=== PATIENT | male | born 1995 | race Two or more races ===

== ENCOUNTER 2017-05-10 02:29 | Day surgery (SDC) | payer OTHER ==
[~2017-05-10] VITALS: Ht 167.6 cm; Wt 66.7 kg
--- NOTE | 2017-05-10 02:58 | Emergency Room Report ---
History of Present Illness Time Seen by MD Handy Presenting Problem in Triage Pt arrived:Walked Presenting Problem:INJURY TO LEFT HAND, BETWEEN LEFT INDEX FINGER AND THUMB. PT SPEAKS VERY LITTLE TAJIK. 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 N Clinical Suspician of Infection? N Mental Status: 1 - Regular (Normal Baseline) Sepsis Risk:Low Sepsis Risk Have you (or family members/close friends) recently traveled outside the [place]? N If Yes, where/when: Have you had exposure to infectious disease within the past month? N TB? Other? Specify: Source patient, RN notes reviewed, family, old records Exam Limitations language barrier Comment pt fell with lt thumb injury tonight Cardiac Chest Pain Chest pain indicative of cardiac No Timing/Duration this evening Severity moderate ALLERGIES Coded Allergies: No Known Allergies (05/10/17) Home Medications Reported Medications No Known Home Medications History Medical History General CAD? No Angina: No [place]: No Hypertension? No Hyperlipidemia? No CHF? No DVT? No PE? No COPD? No Asthma? No Anemia? No GERD? No Gastric ulcers? No GI Bleed? No Hernia? No Thyroid Problems? No Hypothyroidism? No CVA? No Seizures? No Diabetes? No Renal Insuffiency? No End Stage Renal Disease? No UTI? No Stones? No BPH? No GB Disease: No Nephritic Syndrome? No Asplenia? No Hepatitis? No Sickle Cell Disease? No Arthritis? No Migraines? No Cataracts? No Glaucoma? No MRSA? No HIV? No TB? No Anxiety? No Depression? No Immunization Hx DT/Tetanus Unknown Surgical Hx Previous Surgery?N Social History Smoking Hx Smoker: Never Smoker Tobacco: No Type Cigarettes Drugs none Review of Systems All Other Systems Reviewed and Negative Constitutional denies fever Eyes denies drainage ENT denies: ear discharge, epistaxis, throat pain. Respiratory denies cough, denies shortness of breath, denies wheezing Cardiovascular denies chest pain, denies syncope Gastrointestinal denies abdominal pain, denies diarrhea, denies vomiting Genitourinary denies: dysuria, frequency, hesitancy, hematuria. Musculoskeletal see HPI, denies back pain, joint pain, joint swelling, denies neck pain Skin denies rash Psychiatric/Neurological denies headache, denies seizure Physical Exam Vital Signs Vital Signs Date Time Temp Pulse Resp B/P Pulse O2 O2 Flow FiO2 Ox Delivery Rate 05/10 0244 98.0 70 20 135/93 98 - WBC >12,000 or <4,000 or 10% bands? 2 or more SIRS Criteria Met? B/P:135/93 MAP:107 Creatinine >2.0? UA output<0.5ml/kg/hr for 2 hrs? Platelet count >100,000? Lactate >2.0mmol/1? INR >1.2 or PTT > than 60 sec? Evidence of Organ Dysfunction? Provider documented clinical suspician of infection? N Sepsis Criteria Count: 1 Sepsis Risk: Low Sepsis Risk General Appearance no apparent distress Eye Exam - bilateral eye PERRL, bilateral eye EOMI Ear, Nose, Throat normal ENT inspection Neck supple Respiratory Status No: respiratory distress. 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 No Results/Orders Current Medication Orders Sig/Vasyl Start time Last Medication Dose Route Stop Time Status Admin Lidocaine HCl 0 .STK-MED ONE 05/10 0443 DC .ROUTE Lidocaine HCl 0 .STK-MED ONE 05/10 0320 DC .ROUTE Orders Procedure Date/time Status HAND-LT-3 VIEWS 05/106 Active XRAY/CT/US XRAY/CT/US XRAY hand XR interpretation by reviewed by me Xray Results abnormal (prox dislocation) Procedures Orthopedic/Inj/Splint Ortho Proc/Injections/Splints Risks/benefits discussed with pt/guardian? Yes IV conscious sedation No Medications Lidocaine mg Nerve block (site) local Medications Lidocaine mg Reduction of dislocation Location thumb Reductioni Method Traction/Counter traction. Comment unable to reduce Pre-Proc Neuro Vasc Exam normal Post-Proc Neuro Vasc Exam unchanged from pre-exam Departure Departure Time of Disposition 0508 Disposition Still a Patient Clinical Impression Primary Impression: Dislocation of thumb Qualifiers: Encounter type: initial encounter Laterality: left Qualified Code: S63.105A - Unspecified dislocation of left thumb, initial encounter Condition STABLE Referrals NAOMI BARRETT, JULISSA HORAN Prescriptions Current Visit Scripts No Known Home Medications ED Critical Care Critical Care No at 0502
--- NOTE | 2017-05-10 02:58 | Emergency Room Report ---
History of Present Illness Time Seen by MD Handy Presenting Problem in Triage Pt arrived:Walked Presenting Problem:INJURY TO LEFT HAND, BETWEEN LEFT INDEX FINGER AND THUMB. PT SPEAKS VERY LITTLE UKRAINIAN. 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 N Clinical Suspician of Infection? N Mental Status: 1 - Regular (Normal Baseline) Sepsis Risk:Low Sepsis Risk Have you (or family members/close friends) recently traveled outside the [place]? N If Yes, where/when: Have you had exposure to infectious disease within the past month? N TB? Other? Specify: Source patient, RN notes reviewed, family, old records Exam Limitations language barrier Comment pt fell with lt thumb injury tonight Cardiac Chest Pain Chest pain indicative of cardiac No Timing/Duration this evening Severity moderate ALLERGIES Coded Allergies: No Known Allergies (05/10/17) Home Medications Reported Medications No Known Home Medications History Medical History General CAD? No Angina: No [place]: No Hypertension? No Hyperlipidemia? No CHF? No DVT? No PE? No COPD? No Asthma? No Anemia? No GERD? No Gastric ulcers? No GI Bleed? No Hernia? No Thyroid Problems? No Hypothyroidism? No CVA? No Seizures? No Diabetes? No Renal Insuffiency? No End Stage Renal Disease? No UTI? No Stones? No BPH? No GB Disease: No Nephritic Syndrome? No Asplenia? No Hepatitis? No Sickle Cell Disease? No Arthritis? No Migraines? No Cataracts? No Glaucoma? No MRSA? No HIV? No TB? No Anxiety? No Depression? No Immunization Hx DT/Tetanus Unknown Surgical Hx Previous Surgery?N Social History Smoking Hx Smoker: Never Smoker Tobacco: No Type Cigarettes Drugs none Review of Systems All Other Systems Reviewed and Negative Constitutional denies fever Eyes denies drainage ENT denies: ear discharge, epistaxis, throat pain. Respiratory denies cough, denies shortness of breath, denies wheezing Cardiovascular denies chest pain, denies syncope Gastrointestinal denies abdominal pain, denies diarrhea, denies vomiting Genitourinary denies: dysuria, frequency, hesitancy, hematuria. Musculoskeletal see HPI, denies back pain, joint pain, joint swelling, denies neck pain Skin denies rash Psychiatric/Neurological denies headache, denies seizure Physical Exam Vital Signs Vital Signs Date Time Temp Pulse Resp B/P Pulse O2 O2 Flow FiO2 Ox Delivery Rate 05/10 0244 98.0 70 20 135/93 98 - WBC >12,000 or <4,000 or 10% bands? 2 or more SIRS Criteria Met? B/P:135/93 MAP:107 Creatinine >2.0? UA output<0.5ml/kg/hr for 2 hrs? Platelet count >100,000? Lactate >2.0mmol/1? INR >1.2 or PTT > than 60 sec? Evidence of Organ Dysfunction? Provider documented clinical suspician of infection? N Sepsis Criteria Count: 1 Sepsis Risk: Low Sepsis Risk General Appearance no apparent distress Eye Exam - bilateral eye PERRL, bilateral eye EOMI Ear, Nose, Throat normal ENT inspection Neck supple Respiratory Status No: respiratory distress. 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 No Results/Orders Current Medication Orders Sig/Vasyl Start time Last Medication Dose Route Stop Time Status Admin Lidocaine HCl 0 .STK-MED ONE 05/10 0443 DC .ROUTE Lidocaine HCl 0 .STK-MED ONE 05/10 0320 DC .ROUTE Orders Procedure Date/time Status HAND-LT-3 VIEWS 05/106 Active XRAY/CT/US XRAY/CT/US XRAY hand XR interpretation by reviewed by me Xray Results abnormal (prox dislocation) Procedures Orthopedic/Inj/Splint Ortho Proc/Injections/Splints Risks/benefits discussed with pt/guardian? Yes IV conscious sedation No Medications Lidocaine mg Nerve block (site) local Medications Lidocaine mg Reduction of dislocation Location thumb Reductioni Method Traction/Counter traction. Comment unable to reduce Pre-Proc Neuro Vasc Exam normal Post-Proc Neuro Vasc Exam unchanged from pre-exam Departure Departure Time of Disposition 0508 Disposition Still a Patient Clinical Impression Primary Impression: Dislocation of thumb Qualifiers: Encounter type: initial encounter Laterality: left Qualified Code: S63.105A - Unspecified dislocation of left thumb, initial encounter Condition STABLE Referrals NAOMI BARRETT, JULISSA HORAN Prescriptions Current Visit Scripts No Known Home Medications ED Critical Care Critical Care No at 050
--- OUTSIDE RECORDS SUMMARY | 2017-05-10 03:00 | External Medical Summary Rpt | CCD ---
Author Author [employer] Organization [employer] Address Unknown Phone Unavailable Purpose Continuity of Care Document - through 2016
--- OUTSIDE RECORDS SUMMARY | 2017-05-10 03:00 | External Medical Summary Rpt | CCD ---
Author Author , AVI CÁRDENAS Address Unknown Phone [email or web address] Purpose Continuity of Care Document - through 2016
--- OUTSIDE RECORDS SUMMARY | 2017-05-10 03:00 | External Medical Summary Rpt | CCD ---
Author Author , AVI CÁRDENAS Address Unknown Phone [email or web address] Purpose Continuity of Care Document - through 2016
--- OUTSIDE RECORDS SUMMARY | 2017-05-10 03:02 | External Medical Summary Rpt | CCD ---
Demographics Preferred Language Lao Marital Status Unknown Buddhism Affiliation Unknown Race Unknown Ethnic Group Unknown Author Author , AVI Organization [employer] Address Unknown Phone Immunization Unable to retrieve immunization data due to connection failure with Immunization Registry. Please try again later.
--- OUTSIDE RECORDS SUMMARY | 2017-05-10 03:02 | External Medical Summary Rpt | CCD ---
Demographics Preferred Language [place] Marital Status Unknown Zoroastrianism Affiliation Unknown Race Unknown Ethnic Group Unknown Author Author , [employer] Organization [employer] Address Unknown Phone Immunization Unable to retrieve immunization data due to connection failure with Immunization Registry. Please try again later.
--- NOTE | 2017-05-10 05:48 | CONSULT NOTE ---
Consultation findings: Referring physician: Dr. Powers Date of examination: 05/10/17 Time of examination: 0430 Exam findings: Emergency room consultation History of Present Illness Chief complaint: Injury left thumb Patient is a pleasant 21-year-old [id number] gentleman seen in the ER along with his father and brother. Patient and his family speak Italian and do not speak any meaningful Salvadorean. We used [employer] and video remote interpretation (VRI) service to communicate with the patient. He presented to the ER during the early hours with history of injury to his left thumb when he fell down. Following the injury he developed pain and swelling at the base of the thumb. X-rays in the ER showed carpometacarpal joint dislocation of his left thumb. An unsuccessful closed reduction was attempted by Dr. Powers under local anesthesia. Patient and his family were in the [employer] [facility]. He is right-hand dominant. No history of any medical problems and no history of any previous surgery. ALLERGIES Coded Allergies: No Known Allergies (05/10/17) Home Medications Reported Medications No Known Home Medications History Medical History General CAD? No Angina: No [place]: No Hypertension? No Hyperlipidemia? No CHF? No DVT? No PE? No COPD? No Asthma? No Anemia? No GERD? No Gastric ulcers? No GI Bleed? No Hernia? No Thyroid Problems? No Hypothyroidism? No CVA? No Seizures? No Diabetes? No Renal Insuffiency? No End Stage Renal Disease? No UTI? No Stones? No BPH? No GB Disease: No Nephritic Syndrome? No Asplenia? No Hepatitis? No Sickle Cell Disease? No Arthritis? No Migraines? No Cataracts? No Glaucoma? No MRSA? No HIV? No TB? No Anxiety? No Depression? No Immunization Hx DT/Tetanus Unknown Surgical Hx Previous Surgery?N Social History Smoking Hx Smoker: Never Smoker Tobacco: No Type Cigarettes Drugs none Review of Systems All Other Systems Reviewed and Negative Constitutional: denies fever Eyes: denies drainage ENT: denies: ear discharge, epistaxis, throat pain. Respiratory: denies cough, denies shortness of breath, denies wheezing Cardiovascular: denies chest pain, denies syncope Gastrointestinal: denies abdominal pain, denies diarrhea, denies vomiting Genitourinary: denies: dysuria, frequency, hesitancy, hematuria. Musculoskeletal: see HPI, denies back pain, joint pain, joint swelling, denies neck pain Skin: denies rash Psychiatric/Neurological: denies headache, denies seizure Physical Exam 1ST Vital Signs Result Date Time Pulse Ox 98 05/10 244 B/P 135/93 05/10 244 Temp 98.0 05/10 244 Pulse 70 05/10 244 Resp 20 05/10 244 Exam: General Appearance: normal appearance, well built. No acute distress ENT: mucous membranes moist Neck: normal inspection, non-tender, supple, full range of motion, trachea central Respiratory: chest symmetrical, non tender chest. No respiratory distress. Normal breath sounds bilaterally, lungs clear to auscultation. Cardiovascular: regular rate/rhythm, no peripheral edema, no gallop, no JVD, no murmur, no rub, normal peripheral pulses Gastrointestinal: Abdomen is soft and nontender, normal bowel sounds over all 4 quadrants, no organomegaly, no CVA tenderness. Neurologic: alert and oriented x 3; cranial nerves II-12: intact Mental status: Mood and affect are appropriate for situation Skin: intact, normal color, warm/dry On examination of his left hand, there is obvious deformity of the thumb with hyperextension at the MCP joint flexion of the DIP joint and shortening. There is diffuse swelling around the base of the thumb. He has limited and painful movements of his thumb. He still has some numbness from the local anesthetic injection. Distal circulation is intact with brisk capillary refill. No other injuries noted. Imaging: X-rays of his left hand multiple views showing a dorsal dislocation of the first metacarpophalangeal joint. There is no evidence of any fracture. Impression: Complex dislocation metacarpophalangeal joint, left thumb Recommendations: Utilizing the [employer] remote interpretation services, I reviewed the clinical and x-ray findings with the patient and his father. I discussed the diagnosis, natural history and management options including both nonsurgical and surgical. As the dislocation is not reducible by closed method, I have recommended an open reduction and stabilization as appropriate at the time of surgery. He wished to proceed. We discussed the details of the procedure, risks, benefits and alternatives. The complications discussed include but are not limited to infection, bleeding, injury to nerves and blood vessels, tendons and ligaments, wound dehiscence (wound coming apart), blood clots (DVT/PE), tendon injury/rupture, fracture, injury to the articular surface, stiffness, complex regional pain syndrome, hardware failure, pin tract infection, migration , wire breakage, bowstringing of tendons, weakness of pest control worker strength, incomplete functional recovery, persistent pain, decreased use of the hand, loss of use of the arm, loss of the digit or hand, likely need for further surgery, complications of anesthesia including heart attack, stroke and even . I also discussed about the possible need for further surgery for removal of the hardware if any utilized. I've indicated to the patient where the proposed incision would be made and also discussed the possibility of extending the incision if needed to accomplish an effective release. We have utilized paper copies of his x-rays to explain. I have told him that the thumb would be immobilized for up to 4 weeks and he may need hand therapy afterwards. I have also specifically told them that I am a general orthopedic surgeon and not a hand specialist. I have told him that I am capable of performing the surgery here but if they wish we could refer him to a hand specialist in [place]. They preferred to have it managed here. They asked appropriate questions and all have been answered by me. I believe the patient is fully informed as to the goal of surgery, the potential risks and benefits. All their questions were answered by me and they verbalized a good understanding. We will plan to perform the surgery this morning under general anesthesia.
[2017-05-10 06:04] LABS: HEMOGLOBIN 14.7 g/dL (14.1-18.0)
[2017-05-10 06:45] LABS: NEUTROPHILS 86 % (42-76)
--- NOTE | 2017-05-10 10:23 | Anesthesia Record ---
Anesthesia Record Part I Total IV fluids: 1100 EBL (ml): 0 Urine Output: 0 B/P: 140/79 % SaO2: 98 Pulse: 57 Resps: 16 Temp: 97.8 Patient is: Drowsy, Stable Stable to PACU at: 1100 at 1023
--- NOTE | 2017-05-10 10:24 | Anesthesia Record ---
Anesthesia Record Part II Discharge time: 1045 Destination: Same day surgery PACU nurse assessment review? Yes Patient is: Stable Anesthesia complications? No at 1027
--- NOTE | 2017-05-10 10:25 | Anesthesia Record ---
Anesthesia Record Part I Total IV fluids: 1100 EBL (ml): 0 Urine Output: 0 B/P: 140/79 % SaO2: 98 Pulse: 57 Resps: 16 Temp: 97.8 Patient is: Drowsy, Stable Stable to PACU at: 1015 at 1024
--- NOTE | 2017-05-10 10:52 | Operative Note ---
Procedure/Operative Record Date of Procedure: 05/10/17 Referring physician: Dr. Powers Pre-op diagnosis: Complex dorsal dislocation metacarpophalangeal joint, left thumb Post-op diagnosis: Complex dorsal dislocation metacarpophalangeal joint, left thumb Procedure performed: Open reduction MCP joint dislocation, left thumb Surgeon: Jimmy García MD Insurance Customer Service Specialist(s): Jenna Gibbons Anesthesia: General Indications: Patient is a 21-year-old [id number] male who sustained an injury to his left thumb when he fell down. He presented to the ER where x-rays showed dislocation of first metacarpophalangeal joint. Attempts in the ER to reduce the dislocation were unsuccessful confirming the complex nature of the injury. Surgery was indicated to reduce the dislocation, relieve the pain and improve function. Findings: Complex irreducible dorsal dislocation of the metacarpophalangeal joint of his left thumb as noted on the preoperative x-rays. At surgery the volar plate was noted interposed between the head of the metacarpal and the base of the proximal phalanx. After reduction of the dislocation, the joint was noted to be stable; the collateral ligaments were intact. In the end a satisfactory and stable reduction was obtained. Description of procedure: The patient was seen and evaluated in the emergency room along with his family. He speaks only Citizen [place] and we have used video remote interpretation service to communicate with the patient and his family. A clinical examination was performed and documented. I have discussed the diagnosis, natural history and management options in detail including both nonsurgical and surgical. Given the reducible dislocation, he preferred surgical remediation in the form of open reduction and stabilization as appropriate at the time of surgery. We discussed the details of the procedure, risks, benefits and alternatives. The complications discussed include but are not limited to- infection, bleeding, injury to nerves and blood vessels, tendons and ligaments, wound dehiscence ( wound coming apart), blood clots (DVT/PE), tendon injury/rupture, fracture, injury to the articular surface, stiffness, complex regional pain syndrome, hardware failure, pin tract infection, migration, wire breakage, bowstringing of tendons, weakness of house painter strength, incomplete functional recovery, persistent pain, decreased use of the hand, loss of use of the arm, loss of the digit or hand, likely need for further surgery, complications of anesthesia including heart attack, stroke and even . I also discussed about the possible need for further surgery for removal of the hardware if any utilized. I've indicated to the patient where the proposed incision would be made and also discussed the possibility of extending the incision if needed to accomplish an effective release. We have utilized paper copies of his x-rays to explain. I have told him that the thumb would be immobilized for up to 4 weeks and he may need hand therapy afterwards. The asked appropriate questions and all have been answered by me. I believe the patient is fully informed as to the goal of surgery, the potential risks and benefits. All their questions were answered by me and they verbalized a good understanding. He wished to proceed with the surgery. The operative site was marked and initialed by me. Consent form was reviewed and signed. The patient was brought to the operating room and placed supine on the operating table. The left arm was placed over a side table. All the bony prominences were appropriately padded. A general anesthesia was administered. A preprocedure timeout was performed as per hospital policy. Before proceeding with open reduction, a final attempt was made at closed reduction of the dislocation under anesthesia but failed. Therefore we decided to proceed with the open reduction. A well-padded tourniquet cuff was placed over the upper arm. The left upper extremity was prepped and draped in the usual sterile fashion. Administration of prophylactic IV antibiotics was confirmed with the anesthetic team. The left hand was screened under fluoroscopy. The limb was exsanguinated with Esmarch bandage and tourniquet inflated to 250 mmHg. Please see the nursing notes for the tourniquet time. The skin incision was marked for a dorsal approach to the metacarpophalangeal joint of the left thumb. A curvilinear skin incision was made for the dorsal approach to the first MCP joint. The incision was carried through the subcutaneous tissue. Superficial veins were cauterized with bipolar cautery. The extensor apparatus was split longitudinally, between the extensor pollicis longus and brevis tendons. The joint capsule was opened longitudinally. Small amount of hematoma was noted. The hematoma was evacuated and the joint irrigated with normal saline. The base of the proximal phalanx was clearly identified and delineated, as were portions of the ruptured joint capsule and surrounding structures. A gentle attempt was made to reduce the joint using a Parrott elevator. However, it was still reducible and we have noted the volar plate to be lying on the dorsal surface of the metacarpal head, trapped between the head of the metacarpal volarly and the base of the proximal phalanx dorsally. A longitudinal incision in the volar plate, from proximal end to distal, was then performed. The leaflets of the volar plate were then allowed to sublux radially and ulnarly around the metacarpal head and slip back to their anatomical position, volar to the metacarpal head. On the radial aspect of the MP joint, the radial sesamoid bone was found within the joint. This was freed and directed radially out of the joint space. A Parrott elevator was then passed over the metacarpal head to distract open the MP joint space and gentle, distally directed pressure was applied to the base of the proximal phalanx to reduce the MCP joint. After clearing both the sesamoid and the volar plate from the joint space, it was easy to mobilize and reduce the joint. After obtaining and maintaining the desired reduction, stability of the joint was tested and found to be stable. The collateral ligaments were also noted to be stable. Therefore we decided against K wire fixation. Intraoperative C-arm fluoroscopy confirmed an anatomic reduction and appropriate fluoroscopic images were obtained and stored digitally. The wound was thoroughly irrigated with normal saline. The tourniquet was deflated and hemostasis obtained with bipolar diathermy. The joint capsule was closed with 2-0 Vicryl sutures. The extensor apparatus repaired with 3-0 Vicryl sutures. The skin was closed with 4-0 Ethilon sutures and Dermabond. 10 mL of 0.5 percent Marcaine injected as a digital block for postoperative analgesia. Sterile bulky gauze dressing was applied followed by a well-padded protective Ortho-Glass thumb spica splint with about 20 flexion at the MP joint. The patient was reversed from the anesthetic and transferred onto the [facility] and transported to the postoperative recovery area in stable condition. The swab, instrument and needle counts were correct according to the scrub team at the end of the procedure. He tolerated the procedure well and there were no immediate complications. Patient was discharged home after fully recovering from the anesthetic with appropriate written instructions. Follow-up in my office in 10-14 days time for suture removal. EBL (ml): 2 Implant: None Complications: None Specimens: None
[2017-05-10 12:09] VITALS: BP 147/92
--- NOTE | 2017-05-10 18:22 | RADIOLOGY REPORT PS360 ---
HAND-LT-3 VIEWS 10:30 AM HISTORY: S/P ORIF LEFT THUMB PROXIMAL DISLOCATIONpost reduction Patient Age: 21 years: Male Ordering Physician: JULISSA SALGADO MD TECHNIQUE: 3 views left hand COMPARISON :2:50 AM left hand FINDINGS Prior earlier a.m. exam showed dislocation at the first MCP joint. This is been reduced in these postreduction films now with Fiberglas splint in place show good satisfactory reestablish normal relationships at the first MCP joint. . The splint does partially obscure osseous detail on this exam. I see no definitive additional fracture fragments on this study.-Only question tiny areas of density area just posterior to the head of the first metacarpal but this is equivocal. The IP joint of thumb intact. MCP joint relationships normal. There is air and gas within the first interspace and between the second and third metacarpals region likely from laceration or previous procedure Correlation required. The carpals are intact distal radius and ulna intact other fingers unremarkable IMPRESSION: The dislocation at the first MCP joint has been reduced. Normal relationships reestablished. Fiberglas splint has been applied laterally
--- NOTE | 2017-05-10 18:26 | RADIOLOGY REPORT PS360 ---
[id number] (THUMB)-3 [id number] AM HISTORY: LEFT THUMB PROXIMAL DISLOCATION . With reduction Patient Age: 21 years: Male Ordering Physician: JULISSA SALGADO MD TECHNIQUE: Multiple spot views left hand COMPARISON :2:50 AM left hand FINDINGS Prior earlier a.m. exam showed dislocation at the first MCP joint. Fluoroscopic spot images of the Multiple fluoroscopic spot images show the initial dislocation, subsequentt reduction of the dislocation first MTP joint under image guidance. The limited detail on these fluoroscopic spot views but overall good position. First MCP joint . IMPRESSION: The dislocation at the first MCP joint has been reduced. Normal relationships reestablished. .
--- NOTE | 2017-05-10 20:26 | RADIOLOGY REPORT PS360 ---
HAND-LT-3 VIEWS HISTORY: INJURY Patient Age: 21 years: Male Ordering Physician: Veto Powers MD TECHNIQUE: 3 views left hand COMPARISON :None FINDINGS Dislocation is seen at the first MCP joint. The proximal phalanx of the thumb is dislocated lateral and dorsal to the proximal phalanx. Suggestion of subtle small wispy flake fracture possibly present in the soft tissue tissues dorsal to the neck first metacarpal. This aspect subtle flake fracture I suspect may have arisen from the dorsal margin base of head first metacarpal. IMPRESSION: 1. Prominent Dislocation first MCP joint. 2. Also Question/ suspect Subtle wispy flake fracture off the dorsal margin head first metacarpal
== END 2017-05-10 11:30 | disposition home or self-care (01) ==
LOC: ER 02:29 → SDC 08:15
PROVIDERS: Emergency Medicine; Orthopaedic Surgery
PROC: 0RSV04Z Reposition Left Metacarpophalangeal Joint with Internal Fixation Device, Open Approach (ICD-10-PCS; principal; 2017-05-10 08:18)
DX: S63.115A Dislocation of metacarpophalangeal joint of left thumb, initial encounter (principal); W18.30XA Fall on same level, unspecified, initial encounter
CPT/HCPCS: J2405

== ENCOUNTER → 2017-05-26 | Outpatient (CLI) | payer SELFPAY ==
--- NOTE | 2017-05-26 16:42 | RADIOLOGY REPORT PS360 ---
[id number] (THUMB)-3 VIEWS CLINICAL INDICATION: Follow-up fracture HEALING OF LEFT 1ST FINGER ORDERING PHYSICIAN: JULISSA SALGADO MD PATIENT AGE: 22 years COMPARISON: 05/10/2017 FINDINGS: Study is obtained through a splint showing good location of the first metacarpal phalangeal joint. On the lateral view there is some cortical irregularity involving the distal and the palmar aspect of the first metacarpal which could be site of a avulsion injury. Follow-up without the splint is suggested for confirmation. IMPRESSION: 1. Relocated first metacarpophalangeal joint in good position. 2. Possible avulsion fracture donor site at the distal first metacarpal anteriorly
== END ==
LOC: RAD 15:30
DX: Z48.89 Encounter for other specified surgical aftercare (principal)

== ENCOUNTER → 2017-06-10 | Outpatient (CLI) | payer OTHER ==
--- NOTE | 2017-06-10 16:54 | RADIOLOGY REPORT PS360 ---
[id number] (THUMB)-3 VIEWS CLINICAL INDICATION: Follow-up fracture, closed reduction POST OPERATIVE F/U ORDERING PHYSICIAN: JULISSA SALGADO MD PATIENT AGE: 22 years COMPARISON: 11/19 and 05/26/2017 FINDINGS: Cast remains in place. There remains good location of the proximal phalanx at the metacarpal phalangeal joint. The cast does obscure the overlying bony detail and may obscure previously noted avulsion fracture. IMPRESSION: Good position status post casting first metacarpophalangeal joint
== END ==
LOC: RAD 14:48
DX: Z48.89 Encounter for other specified surgical aftercare (principal)